=== PATIENT | female | born 1975 | race Caucasian/White ===

== ENCOUNTER 2016-11-04 01:39 | Inpatient (IN) | payer OTHER ==
[~2016-11-04] VITALS: Ht 157.5 cm; Wt 87.8 kg
--- NOTE | 2016-11-04 03:53 | ED ORDER SUMMARY ---
..... Patient: GAUDENCIO OWEN OrderSheet [facility] VisitID: [id number] [address] [place] [address] 41y, F Registration Date/Time: 11/04/2016 ORDER SHEET Weight: 86.1 kg (stated) Allergies: Dilaudid, Tetracycline, Fish-derived Products GENERAL ORDERS: Chest 1V Urgent (02:14 11/04/2016 Erin Hernandez) (Ack 2:19 AMcQuoid ER Tech1) (2:28 RCollier R.N.) Hay Farmer (Continuous) (cp) (02:14 11/04/2016 Erin Hernandez) (Ack 2:19 AMcQuoid ER Tech1) (2:29 RCollier R.N.) CBC w Diff Urgent (02:16 11/04/2016 Erin Hernandez) (Ack 2:19 AMcQuoid ER Tech1) (2:28 RCollier R.N.) CMP Urgent (02:11/04/2016 Erin Hernandez) (Ack 2:19 AMcQuoid ER Tech1) (2:28 RCollier R.N.) D-Dimer Urgent (02:16 11/04/2016 Erin Hernandez) (Ack 2:19 AMcQuoid ER Tech1) (2:28 RCollier R.N.) BNP Urgent (02:16 11/04/2016 Erin Hernandez) (Ack 2:19 AMcQuoid ER Tech1) (2:28 RCollier R.N.) Troponin-I Urgent (02:11/04/2016 Erin Hernandez) (Ack 2:19 AMcQuoid ER Tech1) (2:29 RCollier R.N.) Pulse oximeter (02:11/04/2016 Erin Hernandez) (Ack 2:19 AMcQuoid ER Tech1) (2:29 RCollier R.N.) EKG - ER Stat (02:11/04/2016 Erin Hernandez) (Ack 2:19 AMcQuoid ER Tech1) (2:28 CHategekimana) (2:28 RCollier R.N.) Blood Culture (Yes) (levaquin) Urgent (03:52 11/04/2016 Erin Hernandez) (Ack 3:53 AMcQuoid ER Tech1) (5:48 RCollier R.N.) MEDICATION ORDERS: DuoNeb Neb Tx 1 unit dose (NOW) (02:15 11/04/2016 Erin Hernandez) (Ack 2:28 RCollier R.N.) (2:28 RCollier R.N.) Albuterol Neb Tx 2.5 mg (NOW) (03:51 11/04/2016 Erin Hernandez) (Ack 3:53 RCollier R.N.) Tylenol PO 650 mg (NOW) (05:48 11/04/2016 Demetrio R.N. verbal order read back to Erin Hernandez) (5:48 RCollier R.N.) IV FLUIDS: IV Saline Lock (02:16 11/04/2016 Erin Hernandez) (Ack 2:16 RCollier R.N.) Solu-MEDROL IV 125 mg (NOW) (02:16 11/04/2016 Erin Hernandez) (Ack 2:28 MAGDAollier R.N.) (2:47 RCollier R.N.) ORDER SHEET NOTES: [Electronically signed by Jinny Hunter R.N. (06:30 11/04/2016)] [Electronically locked/signed by Jinny Hunter R.N. (06:30 11/04/2016)]
--- NOTE | 2016-11-04 03:53 | ED NURSING NOTES ---
Clinical Report - Nurses [facility] [address] [place] [address] 11/04/2016 1:43 Patient: GAUDENCIO OWEN TRIAGE Triage time 01:47. Acuity: LEVEL 3. Chief Complaint: DIFFICULTY BREATHING. Alert. --01:51 Jinny Hunter R.N. 01:47 11/04/16. BP: 97/59. HR: 96. RR: 24 (unlabored). O2 saturation: 92% on room air. Temp: 98.9 F (oral). Pain level now: 04/25. --01:51 Jinny Hunter R.N. Weight: 86.1 kg stated. Height/Length: 62 inches Per Patient. BMI: 34.8. --01:48 Jinny Hunter R.N. Medications Flonase Nasal. --01:53 Jinny Hunter R.N. Albuterol Sulfate Oral. --01:53 Jinny Hunter R.N. Pulmicort Inhalation. --01:53 Jinny Hunter R.N. Sotalol HCl Oral 80 mg, 2x a day. --01:54 Jinny Hunter R.N. ValACYclovir HCl Oral (Tablet 1 gm) 1 tablet, twice daily. --01:54 Jinny Hunter R.N. Linzess Oral (Capsule 290 mcg) 1 capsule, daily. --01:55 Jinny Hunter R.N. Embrel. --01:55 Jinny Hunter R.N. Gabapentin Oral 100 mg, daily. --01:56 Jinny Hunter R.N. ALPRAZolam Oral (Tablet 2 mg) 1 tablet, 2x a day. --01:56 Jinny Hunter R.N. Mucinex D Oral (Tablet Extended Release 12 Hour 60-600 mg) 1 tablet, twice daily. --01:57 Jinny Hunter R.N. PARoxetine HCl Oral (Tablet 20 mg) 1 tablet, daily. --: Jinny Hunter R.N. Benzonatate Oral 100 mg, every 6 hours as needed. --: Jinny Hunter R.N. Metoclopramide HCl Oral 10 mg, 4x a day. --: Jinny Hunter R.N. Ondansetron Oral 4 mg, 2x a day as needed. --: Jinny Hunter R.N. Naproxen Oral 500 mg, 2x a day. --: Jinny Hunter R.N. MetroNIDAZOLE Oral 500 mg, 3x a day. --02: Jinny Hunter R.N. Amitriptyline HCl Oral 25 mg, at bedtime as needed. --02: Jinny Hunter R.N. Levothyroxine Sodium Oral (Tablet 137 mcg) 1 tablet, daily. --02: Jinny Hunter R.N. Limbrel Oral (Capsule 500 mg) 1 capsule, twice daily. --02: Jinny Hunter R.N. Levofloxacin Oral 500 mg, daily. --02: Jinny Hunter R.N. TraMADol HCl Oral 50 mg, every 4 hours as needed. --02: Jinny Hunter R.N. Omeprazole Oral 40 mg, daily. --02:02 Jinny Hunter R.N. Allergies Dilaudid.(vomiting) --02:02 Jinny Hunter R.N. Tetracycline. --02:02 Jinny Hunter R.N. Fish-derived Products.(hives) --02:03 Jinny Hunter R.N. History Arrived by private vehicle. Historian: patient. Accompanied by family. Primary physician (Fernando ([facility])). Onset. (has been ongoing since ). 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 PAST MEDICAL HX: Immunizations: up-to-date. SOCIAL HX: Never smoker. Occasional alcohol use. No drug use. NUTRITIONAL RISK ASSESSMENT: The nutritional risk assessment revealed no deficiencies. FUNCTIONAL ASSESSMENT: Functional assessment: no impairments noted. --:51 Jinny Hunter R.N. PROBLEMS: Bronchitis. Asthma. --01:49 Jinny Hunter R.N. Fibromyalgia. --04:08 Jinny Hunter R.N. ADDITIONAL SURGERIES: . Dilatation & Curettage. Orthroscopy. --01:49 Jinny Hunter R.N. Interventions To treatment room. --01:51 Jinny Hunter R.N. PHYSICAL ASSESSMENT To room via wheelchair. Patient gowned. GENERAL / NEURO / PSYCH: Alert. Oriented X 4. Appears in no acute distress. Appears anxious. HEENT: Mucous membranes are pink. RESPIRATORY: No respiratory distress. The patient can speak in full sentences. CVS: Capillary refill less than 2 seconds. SKIN: Skin is warm and dry. --01:51 Jinny Hunter R.N. NURSING PROGRESS NOTES Head of bed elevated. Two patient identifiers checked. Call light placed in reach. Side rails up x 1. Bed placed in lowest position. Brakes of bed on. --01:52 Jinny Hunter R.N. Patient ready for evaluation- chart flagged. --01:52 Jinny Hunter R.N. 01:52 11/04/16. O2 saturation: 98% on room air. --01:52 Jinny Hunter R.N. 02:20 11/04/2016 Site #1 started via IV in the right antecubital space with an 20g angiocath, with aseptic technique and good blood return; one attempt. Blood drawn: rainbow set. Labeled in the presence of the patient and sent to the lab. Saline lock flushed with 10 mL saline. --02:27 Jinny Hunter R.N. 02:26 11/04/2016 Duoneb (Ipratropium-Albuterol) Neb TX Nebulizer 1 unit dose given. Given by the respiratory therapist. Allergies verified and confirmed 5 rights. --02:28 Jinny Hunter R.N. 02:28 11/04/16. Portable chest x-ray performed and shown to the ED physician. --02:28 Hunter, Jinny, R.N. EKG time: (0227 AM). EKG was ordered, performed by a tech and shown to the ED physician. --02:29 Mili Gonzalez 02:46 11/04/2016 SOLU-MEDROL (MethylPREDNISolone Sodium Succ) IVP 125 mg given over 1 minute(s) via site #1. Allergies verified and confirmed 5 rights. IV patency established. IV site checked: no pain, redness, or swelling. IV flushed thoroughly pre- and post-medication administration. IVP given by RN. --02:47 Jinny Hunter R.N. 04:07 11/04/16. Patient ID band checked for patient name and birthdate: patient confirmed. Blood samples drawn by lab per protocol ; labeled in presence of the patient and sent to lab: blood culture. --04:07 Jinny Hunter R.N. 05:48 11/04/2016 Tylenol (Acetaminophen) PO Tablets 650 mg given. Allergies verified and confirmed 5 rights. --05:48 Jinny Hunter R.N. 06:08 11/04/16. BP: 103/65. HR: 104. RR: 15 (regular and unlabored). O2 saturation: 94% on room air. --06:09 Jinny Hunter R.N. 05:50 late entry - pt given ice water per pt request and verbal ok by EDMD. --06:10 Jinny Hunter R.N. DISPOSITION / DISCHARGE Report was given to a nurse via a phone call. Report included patient's care, treatment, medications, reviewed medication reconcilliation, and condition (including any recent changes or anticipated changes). All questions were answered. Report was acknowledged. --06:24 Jinny Hunter R.N. Admitted to Acute Care. --06:24 Jinny Hunter R.N. Transported via wheelchair by tech with IV. --06:30 Jinny Hunter R.N. 06:30 11/04/2016 Site #[address] upon admission; patent. --06:30 Jinny Hunter R.N. Locked/Released at 11/04/2016 6:30 by Jinny Hunter R.N.
--- NOTE | 2016-11-04 03:53 | ED ORDER SUMMARY ---
..... Patient: GAUDENCIO OWEN OrderSheet [facility] VisitID: [id number] [address] [place] [address] 41y, F Registration Date/Time: 11/04/2016 ORDER SHEET Weight: 86.1 kg (stated) Allergies: Dilaudid, Tetracycline, Fish-derived Products GENERAL ORDERS: Chest 1V Urgent (02:14 11/04/2016 Erin Hernandez) (Ack 2:19 AMcQuoid ER Tech1) (2:28 RCollier R.N.) General Production Manager (Continuous) (cp) (02:14 11/04/2016 Erin Hernandez) (Ack 2:19 AMcQuoid ER Tech1) (2:29 RCollier R.N.) CBC w Diff Urgent (02:16 11/04/2016 Erin Hernandez) (Ack 2:19 AMcQuoid ER Tech1) (2:28 RCollier R.N.) CMP Urgent (02:11/04/2016 Erin Hernandez) (Ack 2:19 AMcQuoid ER Tech1) (2:28 RCollier R.N.) D-Dimer Urgent (02:16 11/04/2016 Erin Hernandez) (Ack 2:19 AMcQuoid ER Tech1) (2:28 RCollier R.N.) BNP Urgent (02:16 11/04/2016 Erin Hernandez) (Ack 2:19 AMcQuoid ER Tech1) (2:28 RCollier R.N.) Troponin-I Urgent (02:11/04/2016 Erin Hernandez) (Ack 2:19 AMcQuoid ER Tech1) (2:29 RCollier R.N.) Pulse oximeter (02:11/04/2016 Erin Hernandez) (Ack 2:19 AMcQuoid ER Tech1) (2:29 RCollier R.N.) EKG - ER Stat (02:11/04/2016 Erin Hernandez) (Ack 2:19 AMcQuoid ER Tech1) (2:28 CHategekimana) (2:28 RCollier R.N.) Blood Culture (Yes) (levaquin) Urgent (03:52 11/04/2016 Erin Hernandez) (Ack 3:53 AMcQuoid ER Tech1) (5:48 RCollier R.N.) MEDICATION ORDERS: DuoNeb Neb Tx 1 unit dose (NOW) (02:15 11/04/2016 Erin Hernandez) (Ack 2:28 RCollier R.N.) (2:28 RCollier R.N.) Albuterol Neb Tx 2.5 mg (NOW) (03:51 11/04/2016 Erin Hernandez) (Ack 3:53 RCollier R.N.) Tylenol PO 650 mg (NOW) (05:48 11/04/2016 Demetrio R.N. verbal order read back to Erin Hernandez) (5:48 RCollier R.N.) IV FLUIDS: IV Saline Lock (02:16 11/04/2016 Erin Hernandez) (Ack 2:16 RCollier R.N.) Solu-MEDROL IV 125 mg (NOW) (02:16 11/04/2016 Erin Hernandez) (Ack 2:28 MAGDAollier R.N.) (2:47 RCollier R.N.) ORDER SHEET NOTES: [Electronically signed by Jinny Hunter R.N. (06:30 11/04/2016)] [Electronically locked/signed by Jinny Hunter R.N. (06:30 11/04/2016)]
--- NOTE | 2016-11-04 06:15 | DIAGNOSTIC IMAGING REPORT ---
PROCEDURE: XR CHEST 1 VIEW INDICATION: CHEST PAIN TECHNIQUE: Portable AP view (0225 hours). COMPARISON: None. FINDINGS: There are mild bilateral interstitial and early alveolar parenchymal changes. Heart and mediastinum are normal. Thorax is normal. IMPRESSION: 1. Mild bilateral interstitial and early alveolar parenchymal changes compatible with pneumonia (e.g., viral, Mycoplasma).
[2016-11-04] MEDS ORDERED: XANAX0.5 MG PO (06:26)
[2016-11-04] MEDS ORDERED: PROAIR HFA IN (06:26)
[2016-11-04] MEDS ORDERED: AMITRIPTYLINE H25 MG PO (06:27)
[2016-11-04] MEDS ORDERED: BENZONATATE100 MG PO (06:27)
--- NOTE | 2016-11-04 06:31 | ED MED RECONCILIATION SUMMARY ---
Patient: GAUDENCIO OWEN Medication Reconciliation Report [facility] VisitID: [id number] [address] [place] [address] 41y, F Registration Date/Time: 11/04/2016 Weight: 86.1 kg Height/Length: 62 in. BMI: 34.8 ALLERGIES: Dilaudid, Fish-derived Products, Tetracycline The patient's Home Medications are listed below: THE FOLLOWING MEDICATIONS NEED TO BE RECONCILED: Albuterol Sulfate Oral ALPRAZolam Oral (2 mg) 1 tablet, 2x a day Amitriptyline HCl Oral 25 mg, at bedtime Benzonatate Oral 100 mg, every 6 hours Embrel Flonase Nasal Gabapentin Oral 100 mg, daily Levofloxacin Oral 500 mg, daily Levothyroxine Sodium Oral (137 mcg) 1 tablet, daily Limbrel Oral (500 mg) 1 capsule, twice daily Linzess Oral (290 mcg) 1 capsule, daily Metoclopramide HCl Oral 10 mg, 4x a day MetroNIDAZOLE Oral 500 mg, 3x a day Mucinex D Oral (60-600 mg) 1 tablet, twice daily Naproxen Oral 500 mg, 2x a day Omeprazole Oral 40 mg, daily Ondansetron Oral 4 mg, 2x a day PARoxetine HCl Oral (20 mg) 1 tablet, daily Pulmicort Inhalation Sotalol HCl Oral 80 mg, 2x a day TraMADol HCl Oral 50 mg, every 4 hours ValACYclovir HCl Oral (1 gm) 1 tablet, twice daily The source(s) of the original Home Medication information: Not obtained. The following Medications were given to the patient in the Emergency Department: Duoneb [Neb Tx] Neb TX 1 unit dose, administered: 11/04/2016 2:26:00 AM SOLU-MEDROL [IVP] IVP 125 mg, administered: 11/04/2016 2:46:00 AM Tylenol [PO] PO 650 mg, administered: 11/04/2016 5:48:00 AM The following Medications were prescribed to the patient: None.
--- NOTE | 2016-11-04 06:31 | ED MED RECONCILIATION SUMMARY ---
Patient: GAUDENCIO OWEN Medication Reconciliation Report [facility] VisitID: [id number] [address] [place] [address] 41y, F Registration Date/Time: 11/04/2016 Weight: 86.1 kg Height/Length: 62 in. BMI: 34.8 ALLERGIES: Dilaudid, Fish-derived Products, Tetracycline The patient's Home Medications are listed below: THE FOLLOWING MEDICATIONS NEED TO BE RECONCILED: Albuterol Sulfate Oral ALPRAZolam Oral (2 mg) 1 tablet, 2x a day Amitriptyline HCl Oral 25 mg, at bedtime Benzonatate Oral 100 mg, every 6 hours Embrel Flonase Nasal Gabapentin Oral 100 mg, daily Levofloxacin Oral 500 mg, daily Levothyroxine Sodium Oral (137 mcg) 1 tablet, daily Limbrel Oral (500 mg) 1 capsule, twice daily Linzess Oral (290 mcg) 1 capsule, daily Metoclopramide HCl Oral 10 mg, 4x a day MetroNIDAZOLE Oral 500 mg, 3x a day Mucinex D Oral (60-600 mg) 1 tablet, twice daily Naproxen Oral 500 mg, 2x a day Omeprazole Oral 40 mg, daily Ondansetron Oral 4 mg, 2x a day PARoxetine HCl Oral (20 mg) 1 tablet, daily Pulmicort Inhalation Sotalol HCl Oral 80 mg, 2x a day TraMADol HCl Oral 50 mg, every 4 hours ValACYclovir HCl Oral (1 gm) 1 tablet, twice daily The source(s) of the original Home Medication information: Not obtained. The following Medications were given to the patient in the Emergency Department: Duoneb [Neb Tx] Neb TX 1 unit dose, administered: 11/04/2016 2:26:00 AM SOLU-MEDROL [IVP] IVP 125 mg, administered: 11/04/2016 2:46:00 AM Tylenol [PO] PO 650 mg, administered: 11/04/2016 5:48:00 AM The following Medications were prescribed to the patient: None.
--- NOTE | 2016-11-04 06:31 | ED MAR SUMMARY ---
..... Medication Administration Record [facility] [address] [place] [address] Patient: GAUDENCIO OWEN Visit ID: [id number] 41y, F Weight: 86.1 kg Height/Length: 62 in BMI: 34.8 ALLERGIES: Fish-derived Products, Tetracycline, Dilaudid Given 02:26 11/04/2016 Jinny Hunter R.N. Medication Administered: DUONEB [NEB TX] (IPRATROPIUM-ALBUTEROL), Dose: 1 unit dose Nebulizer Neb TX. Medication Ordered: DuoNeb Neb Tx 1 unit dose (NOW). Given 02:46 11/04/2016 Jinny Hunter R.N. Medication Administered: SOLU-MEDROL [IVP] (METHYLPREDNISOLONE SODIUM SUCC), Dose: 125 mg IVP over 1 minute(s), Site: #1 right AC. Medication Ordered: Solu-MEDROL IV 125 mg (NOW). Given 05:48 11/04/2016 Jinny Hunter R.N. Medication Administered: TYLENOL [PO] (ACETAMINOPHEN), Dose: 650 mg Tablets PO. Medication Ordered: Tylenol PO 650 mg (NOW).
--- NOTE | 2016-11-04 06:31 | ED MAR SUMMARY ---
..... Medication Administration Record [facility] [address] [place] [address] Patient: GAUDENCIO OWEN Visit ID: [id number] 41y, F Weight: 86.1 kg Height/Length: 62 in BMI: 34.8 ALLERGIES: Fish-derived Products, Tetracycline, Dilaudid Given 02:26 11/04/2016 Jinny Hunter R.N. Medication Administered: DUONEB [NEB TX] (IPRATROPIUM-ALBUTEROL), Dose: 1 unit dose Nebulizer Neb TX. Medication Ordered: DuoNeb Neb Tx 1 unit dose (NOW). Given 02:46 11/04/2016 Jinny Hunter R.N. Medication Administered: SOLU-MEDROL [IVP] (METHYLPREDNISOLONE SODIUM SUCC), Dose: 125 mg IVP over 1 minute(s), Site: #1 right AC. Medication Ordered: Solu-MEDROL IV 125 mg (NOW). Given 05:48 11/04/2016 Jinny Hunter R.N. Medication Administered: TYLENOL [PO] (ACETAMINOPHEN), Dose: 650 mg Tablets PO. Medication Ordered: Tylenol PO 650 mg (NOW).
[2016-11-04 06:33] VITALS: BP 105/71
[2016-11-04] MEDS ORDERED: LEVAQUIN500 MG PO (06:34)
[2016-11-04] MEDS ORDERED: GABAPENTIN100 MG PO (06:34)
[2016-11-04] MEDS ORDERED: LEVO-T25 MCG PO (06:35)
--- NOTE | 2016-11-04 06:35 | History & Physical Report ---
Admission Admit Date 11/04/16 History Chief Complaint Cough, Shortness of Breath History of Present Illness Patient is a 41 year old female with a past medical history of Rheumatoid Arthritis, Fibromyalgia, Anxiety, Hypothyroidism, GERD, Depression, and Sinus Tachycardia. She presents to the ER at [facility] this morning complaining of cough and shortness of breath. Pt states her symptoms have been present for nearly 6 weeks now and seem to wax and wane. She states her cough is productive of greenish colored sputum. She also reports intermittent tactile fever and chills. She denies nausea, vomiting, and diarrhea. Pt states she has had cold- like symptoms several weeks ago. Pt states over the last several days her symptoms have worsened and she is now having a sharp sensation in the right side of her chest with deep inspiration. Pt was seen by an outpatient provider recently and was started on PO Levaquin. Pt states she took this medication as prescribed but it did not help her. Pt denies any palpitations, dizziness, or weakness. She further complains of headache and myalgias for the last week. No other complaints or concerns at this time. Patient History 1. Rheumatoid arthritis 2. Anxiety 3. Hypothyroidism 4. GERD (gastroesophageal reflux disease) 5. Tachycardia 6. Fibromyalgia Social History Pt has no hx of tobacco use, denies excessive alcohol consumption and denies use of illicit drugs. Family History Family history was reviewed; no changes noted. Medications and Allergies Medications Current Medications Sig/Franklyn Start time Last Medication Dose Route Stop Time Status Admin Pantoprazole Sodium 40 MG DAILY@0600 11/05 0600 UNV IV Azithromycin 500 MG Q24HR 11/04 0900 UNV Sodium Chloride 250 ML IV 11/06 1000 Ceftriaxone Sodium/ 50 ML Q24HR 11/04 0900 UNV Dextrose IV Albuterol Sulfate 2.5 MG Q6H PRN 11/04 0645 UNV IN Acetaminophen 650 MG Q6H PRN 11/04 0630 UNV PO Al Hydrox/Mg Hydrox/ 15 ML Q1H PRN 11/04 0630 UNV Simethicone PO Atropine Sulfate 0.5 MG Q3MIN PRN 11/04 0630 UNV IV Docusate Sodium 250 MG BID PRN 11/04 0630 UNV PO Lidocaine HCl See Dose ONCE PRN 11/04 0630 UNi Insts (1) IV Magnesium Hydroxide 10 ML DAILY PRN 11/04 0530 UNV PO Morphine Sulfate 1 MG Q4H PRN 11/04 629 UNV IV Morphine Sulfate 2 MG Q3M PRN 11/04 629 UNV IV Naloxone HCl 0.4 MG PRN PRN 11/04 629 UNV IV Nitroglycerin 0.4 MG Q5M PRN 11/04 629 UNV SL Ondansetron HCl 4 MG Q6H PRN 11/04 629 UNV IV Sodium Chloride 1,000 ML ASDIRECTED 11/04 629 UNV IV Zolpidem Tartrate 5 MG QHS PRN 11/04 629 UNV PO Albuterol/Ipratropium 3 ML Q4H PRN 11/04 0400 AC IN Ondansetron HCl 4 MG Q8H PRN 11/04 0400 AC IV Dose Instructions: (1)Lidocaine HCl: 1.5 MG/KG Pts home medication list has not yet been reconciled. Allergies Coded Allergies: Fish-derived Products (11/04/16) Hydromorphone (From DILAUDID) (11/04/16) TAPE - PAPER (PAPER TAPE) (11/04/16) Tetracycline (11/04/16) Review of Systems Other All systems reviewed and are negative except for what has already been mentioned in the HPI. Physical Exam Vital Signs / I&Os Vital Signs Date Time Temp Pulse Resp B/P Pulse O2 O2 Flow FiO2 Ox Delivery Rate 11/04 227 97.8 96 20 113/74 98% NC 2.0 GENERAL: NAD; Pt laying comfortably in bed HEENT: AT/NC; PERRLA, EOMI; MM Moist CARDIAC: RRR, No M/R/G appreciated PULM: Corase breath sounds throughout bilateral lungs, no wheezing present, normal work of breathing ABD: Soft, NT, ND, Positive BS in all quadrants; No hepatosplenomegaly appreciated EXT: No C/C/E in bilateral upper and lower extremity; No calve tenderness bilaterally SKIN: Warm, dry, pink, and intact NEURO: Alert and oriented x3; Following all commands PSYCH: Normal mood and affect LAB Results Laboratory Tests 11/04 0222 0222 Chemistry Plasma Sodium (136 - 145 mmol/L) 139 Plasma Potassium (3.5 - 5.1 mmol/L) 4.0 Plasma Chloride (98 - 107 mmol/L) 106 CO2 (Enzymatic) (21 - 32 mmol/L) 25 BUN (7 - 18 mg/dL) 13 Creatinine (0.6 - 1.3 mg/dL) 1.1 Est GFR ( Amer) (mL/min) >60 Est GFR (Non-Af Amer) (mL/min) 57.89 Glucose (70 - 110 mg/dL) 118 Plasma Calcium (8.5 - 10.1 mg/dL) 8.2 Plasma Magnesium Pending Total Bilirubin (0.0 - 1.0 mg/dL) 0.8 AST (15 - 37 U/L) 63 ALT (12 - 78 U/L) 97 Alkaline Phosphatase (46 - 116 U/L) 117 Troponin (0.00 - 1.5 ng/mL) Pending <0.05 B-Natriuretic Peptide (5 - 100 pg/ml) 15.0 Total Protein (6.4 - 8.2 g/dL) 6.5 Albumin (3.3 - 5.0 g/dL) 2.9 Coagulation D-Dimer, Quantitative (0.27 - 0.52 ug/mLFEU) 0.33 Hematology WBC (4.5 - 11.5 K/uL) 8.1 RBC (4.00 - 5.20 M/uL) 4.30 Hgb (12.0 - 16.0 gm/dL) 12.5 Hct (36.0 - 46.0 %) 37.0 MCV (80 - 100 fL) 86 MCH (26 - 34 pg) 29 RDW (11.6 - 14.8 %) 14.4 Neut % (Auto) (50 - 75 %) 76.4 Lymph % (Auto) (25 - 40 %) 10.0 [place] % (Auto) (3 - 14 %) 10.1 Eos % (Auto) (0 - 4 %) 2.9 Baso % (Auto) (0 - 2 %) 0.6 Plt Count, EDTA (150 - 400 K/uL) 212 PUBS MCHC (31 - 37 g/dL) 34 Microbiology Date/Time Procedure - Status Source Growth 11/04 632 Influenza Screen - ORD NASALPHAR 11/04 409 Blood Culture - RECD BLOOD 11/04 409 Blood Culture - RECD BLOOD Imaging XR CHEST 1 VIEW TECHNIQUE: Portable AP view (0225 hours). COMPARISON: None. FINDINGS: There are mild bilateral interstitial and early alveolar parenchymal changes. Heart and mediastinum are normal. Thorax is normal. IMPRESSION: 1. Mild bilateral interstitial and early alveolar parenchymal changes compatible with pneumonia (e.g., viral, Mycoplasma). Assessment and Plan Problem List 1. Pneumonia Plan - Present on admission - Will admit to Acute Care as an inpatient as pts expected length of stay is greater than 2 midnights - Blood cultures x2 taken in ER - Start IV Rocephin 2 grams daily - Start IV Azithromycin 500 mg daily x3 days - Albuterol breathing treatments q 6 hours PRN - Supplemental O2 to keep SpO2 greater than 92% - Will order a Respiratory Viral PCR panel now - Will check a Rapid Influenza Screen - Will check urine for Strep Pneumoniae Ag - Will check urine for Legionella Ag - Check CRP and Procalcitonin now - Repeat CBC with diff in AM 2. Rheumatoid arthritis Plan - Pts home medications have not yet been reconciled and nursing is working on this currently - Day team to restart pts home medications 3. Anxiety Plan - Pt is normally on Alprazolam at home but dose is not known at present - Pts home medications have not yet been reconciled and nursing is working on this currently - Day team to restart pts home medications 4. Hypothyroidism Plan - Pt currently taking Synthroid at home - Pts home medications have not yet been reconciled and nursing is working on this currently - Day team to restart pts home medications 5. GERD (gastroesophageal reflux disease) Plan - Will start pt on Protonix while in hospital 6. Tachycardia Plan - Continue home Sotolol once dosage is confirmed - Day team to restart this medication once it is reconciled 7. Fibromyalgia Plan - Pt is normally on Tramadol at home - Will start pt on Morphin 1 mg IV q 4 hours PRN severe pain - Day team to restart home Tramadol once dosage is confirmed
[2016-11-04] MEDS ORDERED: LIMBREL500 MG PO (07:37)
[2016-11-04] MEDS ORDERED: REGLAN10 MG PO (07:39)
[2016-11-04] MEDS ORDERED: LINZESS290 MCG PO (07:39)
[2016-11-04] MEDS ORDERED: FLAGYL500 MG PO (07:40)
[2016-11-04] MEDS ORDERED: NAPROSYN250 MG PO (07:40)
[2016-11-04] MEDS ORDERED: MUCINEX600 MG PO (07:40)
[2016-11-04] MEDS ORDERED: ONDANSETRON ODT4 MG PO (07:41)
[2016-11-04] MEDS ORDERED: OMEPRAZOLE40 MG (07:41)
[2016-11-04] MEDS ORDERED: PAROXETINE HCL10 MG PO (07:41)
[2016-11-04] MEDS ORDERED: BETAPACE AF80 MG PO (07:42)
[2016-11-04] MEDS ORDERED: PULMICORT0.25 MG/2 IN (07:42)
[2016-11-04] MEDS ORDERED: VALACYCLOVIR HCL1 GM (07:43)
[2016-11-04] MEDS ORDERED: TRAMADOL HCL50 MG PO (07:43)
[2016-11-04 10:34] VITALS: BP 101/65
[2016-11-04 14:34] VITALS: BP 110/64
[2016-11-04 18:31] VITALS: BP 115/74
[2016-11-04 23:14] VITALS: BP 108/68
[2016-11-04 23:32] VITALS: BP 138/80
[2016-11-05 02:52] VITALS: BP 106/63
[2016-11-05 06:43] VITALS: BP 102/60
--- NOTE | 2016-11-05 08:04 | Progress Note ---
Subjective General Breathing improved today. No nausea, vomitting, diarrhea, constipation. Chronic abd pain unchanged. Physical Exam Vital Signs / I&Os Vital Signs Date Time Temp Pulse Resp B/P Pulse O2 O2 Flow FiO2 Ox Delivery Rate 11/05 0643 36.4 103 20 102/60 94 Nasal 2.0 Cannula 11/05 0600 2.0 11/05 0252 36.4 79 18 106/63 92 Nasal 2.0 Cannula 11/04 2330 2.0 11/04 2314 36.4 74 18 108/68 96 Nasal 2.0 Cannula 11/04 2130 Nasal 2.0 Cannula 11/04 2021 2.0 11/04 1831 36.4 82 16 115/74 100 Nasal 2.0 Cannula 11/04 1726 2.0 11/04 1434 36.5 85 20 110/64 93 Nasal 1.0 Cannula 11/04 1034 36.6 20 101/65 97 Room Air 1.0 11/04 0815 2.0 I&O 11/05 0000 11/04 1600 11/04 0800 Intake Total 1823 1000 0 Output Total 1000 1100 0 Balance 823 -100 0 General Appearance Alert, Oriented X3, Cooperative, No acute distress Lungs Mild crackles in bilateral lower james. Cardiovascular Regular rate and rhythm, Normal S1 and S2, No murmurs, gallops, rubs Abdomen Normal bowel sounds, Soft, Mild tendernesss on R withOUT peritoneal signs. Extremities No edema Assessment and Plan Problem List 1. Pneumonia Plan Improving in antibiotics. Will try to wean O2 today. 2. Rheumatoid arthritis Plan Nurse working on obtaining accurate dose of meds and will restart meds. 3. Anxiety Plan Nurse working on obtaining accurate dose of meds and will restart meds. 4. Hypothyroidism Plan Nurse working on obtaining accurate dose of meds and will restart meds. 5. GERD (gastroesophageal reflux disease) Plan On PPI 6. Tachycardia Plan Nurse working on obtaining accurate dose of meds and will restart meds. 7. Fibromyalgia Plan Nurse working on obtaining accurate dose of meds and will restart meds.
[2016-11-05 11:23] VITALS: BP 110/6; BP 110/60
--- NOTE | 2016-11-05 12:53 | Provider's Discharge Care Plan ---
Problem, Goal, Plan Problem List 1. Pneumonia Goals: Improved health/wellness Instructions: Follow up as directed, Take meds as directed
--- NOTE | 2016-11-05 12:53 | Provider's Discharge Care Plan ---
Problem, Goal, Plan Problem List 1. Pneumonia Goals: Improved health/wellness Instructions: Follow up as directed, Take meds as directed
[2016-11-05] MEDS ORDERED: CEPHALEXIN500 MG PO (12:59)
[2016-11-05] MEDS ORDERED: IPRATROPIUM BROMIDE/ IN (12:59)
[2016-11-05] MEDS ORDERED: ZITHROMAX250 MG PO (12:59)
[2016-11-05] MEDS ORDERED: PREDNISONE20 MG PO (12:59)
[2016-11-05 15:13] VITALS: BP 126/62
--- NOTE | 2016-11-11 02:38 | ED DISCHARGE INSTRUCTIONS ---
Patient: GAUDENCIO OWEN General Instructions [facility] VisitID: [id number] [address] [place] [address] 41y, F Registration Date/Time: 11/04/2016 acute bilateral pneumonia atypical chest pain, acute acute hypoxia. (Electronically signed by Oliver Gray Dr. 11/11/2016 2:37)
--- NOTE | 2016-11-11 02:38 | ED CLINICAL REPORT ---
Clinical Report - Physicians/Mid Levels [facility] [address] [place] [address] 11/04/2016 1:43 Patient: GAUDENCIO OWEN Arrived- By private vehicle. Historian- patient. HISTORY OF PRESENT ILLNESS Chief Complaint: CHEST PAIN. At its maximum, severity described as moderate. When seen in the E.D., severity described as moderate. Modifying factors- worsened by deep breaths. Relieved by rest. This started past few days and is still present (staying the same). It was gradual in onset and has been intermittent but is not gone now. Onset during rest. It is described as "pain". No radiation. No nausea, vomiting or diaphoresis. (reports cough, congestion, and fever). She has had difficulty breathing. No additional chest pain. Similar symptoms previously: None. Recent medical care: Not recently seen/assessed. REVIEW OF SYSTEMS No pedal edema, calf pain, abdominal pain or skin rash. All systems otherwise negative, except as recorded above. PAST HISTORY See nurses notes. Medications: Omeprazole Oral 40 mg, daily. TraMADol HCl Oral 50 mg, every 4 hours as needed. Levofloxacin Oral 500 mg, daily. Limbrel Oral (Capsule 500 mg) 1 capsule, twice daily. Levothyroxine Sodium Oral (Tablet 137 mcg) 1 tablet, daily. Amitriptyline HCl Oral 25 mg, at bedtime as needed. MetroNIDAZOLE Oral 500 mg, 3x a day. Naproxen Oral 500 mg, 2x a day. Ondansetron Oral 4 mg, 2x a day as needed. Metoclopramide HCl Oral 10 mg, 4x a day. Benzonatate Oral 100 mg, every 6 hours as needed. PARoxetine HCl Oral (Tablet 20 mg) 1 tablet, daily. Mucinex D Oral (Tablet Extended Release 12 Hour 60-600 mg) 1 tablet, twice daily. ALPRAZolam Oral (Tablet 2 mg) 1 tablet, 2x a day. Gabapentin Oral 100 mg, daily. Embrel. Linzess Oral (Capsule 290 mcg) 1 capsule, daily. ValACYclovir HCl Oral (Tablet 1 gm) 1 tablet, twice daily. Sotalol HCl Oral 80 mg, 2x a day. Pulmicort Inhalation. Albuterol Sulfate Oral. Flonase Nasal. Allergies: Dilaudid.(vomiting) Fish-derived Products.(hives) Tetracycline. SOCIAL HISTORY Never smoker. No alcohol use or drug use. No recent travel. Is a local resident. FAMILY HISTORY Negative. PHYSICAL EXAM Appearance: Alert. Oriented X3. Patient in mild distress. Eyes: Pupils equal, round and reactive to light. Eyes normal inspection. ENT: Ears normal. Nose normal. Pharynx normal. Neck: Normal inspection. Neck supple. CVS: Normal heart rate and rhythm. Heart sounds normal. Pulses normal. Respiratory: Mild respiratory distress with accessory muscle use. Prolonged expirations. Decreased air movement. Expiratory moderate bilateral wheezes diffusely. Mild bilateral rhonchi present in the bases. Chest nontender. Abdomen: Soft and nontender. Bowel sounds normal. No organomegaly. No mass. Back: Normal external inspection. Skin: Skin warm and dry. Normal skin color. No rash. Normal skin turgor. Extremities: Extremities exhibit normal ROM. No lower extremity edema. No lower extremity edema. LABS, X-RAYS, AND EKG EKG: No acute process. No acute ischemia. Normal EKG. Normal sinus rhythm. Rate: 98. Normal P waves. Normal NATAN. Normal QRS complex. Normal axis. Normal ST and T waves, QT and QTc. The study has been interpreted contemporaneously. The study has been independently viewed by me. The EKG appears to be a good tracing. Chest X-ray: Mediastinum normal. (bilateral patchy infitrates. pneumonia.). Views: PA. Technique: good. The X-rays were independently viewed by me and interpreted contemporaneously by me. Laboratory Tests: CBC w Diff: (JADA: 11/05/2016 05:40) ( MsgRcvd 11/05/2016 06:51) Final results Test Result Flag Units (Reference) WHITE BLOOD COUNT 12.5 H K/uL (4.5-11.5) RED BLOOD COUNT 4.33 M/uL (4.00-5.20) HEMOGLOBIN 12.5 gm/dL (12.0-16.0) HEMATOCRIT 37.8 % (36.0-46.0) MEAN CELL VOLUME 87 fL (80-100) MEAN CORPUSCULAR HGB 29 pg (26-34) MEAN CORPUSCULAR HGB CONC 33 g/dL (31-37) RED CELL DISTRIBUTION WIDTH 14.2 % (11.6-14.8) PLATELET COUNT 279 K/uL (150-400) NEUTROPHIL % 88.3 H % (50-75) LYMPH % 6.9 L % (25-40) MONO % 4.8 % (3-14) EOSINOPHIL % 0 % (0-4) BASOPHIL % 0 % (0-2) Liver Function Panel: (JADA: 11/05/2016 05:40) ( MsgRcvd 11/05/2016 11:16) Final results Test Result Flag Units (Reference) TOTAL PROTEIN 6.0 L g/dL (6.4-8.2) ALBUMIN 2.9 L g/dL (3.3-5.0) BILIRUBIN, TOTAL 0.2 mg/dL (0.0-1.0) BILIRUBIN, DIRECT 0.1 mg/dL (0-0.3) ALKALINE PHOSPHATASE 108 U/L (46-116) AST (SGOT) 24 U/L (15-37) ALT (SGPT) 75 U/L (12-78) THYROID STIMULATING HORMONE 0.114 L uIU/mL (0.34-3.74) BMP: (JADA: 11/05/2016 05:40) ( MsgRcvd 11/05/2016 06:42) Final results Test Result Flag Units (Reference) GLUCOSE 137 H mg/dL (70-110) BUN 10 mg/dL (7-18) CREATININE 0.8 mg/dL (0.6-1.3) Estimated GFR >60 mL/min Estimated GFR- >60 mL/min Note: Persistent reduction over 3 months in eGFR<60 mL/min/1.73 m2 defines CKD. Patients with eGFR values>=60 mL/min/1.73 m2 may also have CKD if evidence ofpersistent proteinuria. Additional information may be foundat www.kidney.org. SODIUM 141 mmol/L (136-145) POTASSIUM 3.9 mmol/L (3.5-5.1) CHLORIDE 109 H mmol/L (98-107) CARBON DIOXIDE 22 mmol/L (21-32) CALCIUM 8.3 L mg/dL (8.5-10.1) [id number]: (JADA: 11/04/2016 08:05) ( [facility] 11/05/[place] 15:09) Final results Test Result Flag Units (Reference) URINE LEGIONELLA ANTIGEN Negative (Negative) Presumptive negative for L. pneumophila serogroup 1 antigenin urine, suggesting no recent or current infection.Legionnaires' disease cannot be ruled out since otherserogroups and species may also cause disease.Performed at: [facility] [id number] Director: Jacob Choudhury MD, Phone: [phone] CBC w Diff: (JADA: 11/04/2016 02:22) ( [facility] 11/04/2016 02:36) Final results Test Result Flag Units (Reference) WHITE BLOOD COUNT 8.1 K/uL (4.5-11.5) RED BLOOD COUNT 4.30 M/uL (4.00-5.20) HEMOGLOBIN 12.5 gm/dL (12.0-16.0) HEMATOCRIT 37.0 % (36.0-46.0) MEAN CELL VOLUME 86 fL (80-100) MEAN CORPUSCULAR HGB 29 pg (26-34) MEAN CORPUSCULAR HGB CONC 34 g/dL (31-37) RED CELL DISTRIBUTION WIDTH 14.4 % (11.6-14.8) PLATELET COUNT 212 K/uL (150-400) NEUTROPHIL % 76.4 H % (50-75) LYMPH % 10.0 L % (25-40) MONO % 10.1 % (3-14) EOSINOPHIL % 2.9 % (0-4) BASOPHIL % 0.6 % (0-2) [id number]: (JADA: 11/04/2016 02:22) ( [facility] 11/04/2016 02:46) Final results Test Result Flag Units (Reference) D-DIMER QUANTITATIVE 0.33 ug/mLFEU (0.27-0.52) The primary value of this quantitative assay relates toits negative predictive value (i.e. exclusion) of pulmonaryembolism/deep vein thrombosis/DIC.Elevated levels of d-dimer may also occur with:, age, cancer, inflammation, liver disease,post-op, infection, hematoma, coronary disease, peripheralarteriopathy, bleeding disorders and thrombolytic treatment.Results should be correlated with other clinical andradiological data.Testing Methodology: Latex Immunoassay [id number]: (JADA: 11/04/2016 06:40) ( MsgRcvd 11/04/2016 08:11) Final results Test Result Flag Units (Reference) PROCALCITONIN <0.5 ng/mL (0-0.5) PCT Concentration: Interpretation : Risk/option for action PCT <=0.5 ng/mL : Systemic : Low risk forinfection(sepsis): progression to severeis not likely. : systemic infection.Local bacterial : CAUTION-PCT levelsinfection is : below 0.5 ng/mL do notpossible. : exclude an infection,because localizedinfections (withoutsystemic signs) may beassociated with suchlow levels. If PCT ismeasured very earlyafter a bacterialchallenge (usually <6hours), these valuesmay still be low. Inthis case PCT shouldbe re-assessed 6-24hours later. PCT >0.5 and : Systemic infection: Moderate risk for<= 2 ng/mL : (sepsis) is : progression to severepossible, but : systemic infection.other conditions : The patient should beare known to : closely monitoredelevate PCT. : both clinically andby re-assessing PCTwithin 6-24 hours. PCT > 2 ng/mL : Systemic infection: High risk for(sepsis) is likely: progression to severeunless other : systemic infection.causes are known. : PCT >= 10 ng/mL : Important systemic: High likelihood ofinflammatory : severe sepsis orresponse, almost : septic shock.exclusively due to:severe bacterial :sepsis or septic :shock. : Troponin-I: (JADA: 11/04/2016 22:15) ( [facility] 11/04/2016 22:48) Final results Test Result Flag Units (Reference) TROPONIN I <0.05 L ng/mL (0.00-1.5) TROPONIN REFERENCE RANGE:<0.1 NEGATIVE0.1-1.5 INDETERMINANT>1.5 POSITIVE Troponin-I: (JADA: 11/04/2016 14:25) ( [facility] 11/04/2016 14:51) Final results Test Result Flag Units (Reference) TROPONIN I <0.05 L ng/mL (0.00-1.5) TROPONIN REFERENCE RANGE:<0.1 NEGATIVE0.1-1.5 INDETERMINANT>1.5 POSITIVE Magnesium: (JADA: 11/04/2016 06:40) ( [facility] 11/04/2016 07:20) Final results Test Result Flag Units (Reference) MAGNESIUM 2.0 mg/dL (1.8-2.4) TROPONIN I <0.05 L ng/mL (0.00-1.5) TROPONIN REFERENCE RANGE:<0.1 NEGATIVE0.1-1.5 INDETERMINANT>1.5 POSITIVE C-REACTIVE PROTEIN 23.2 H mg/dL (0.0-0.9) BNP: (JADA: 11/04/2016 02:22) ( MsgRcvd 11/04/2016 02:57) Final results Test Result Flag Units (Reference) B-TYPE NATRIURETIC PEPTIDE 15.0 pg/ml (5-100) CMP: (JADA: 11/04/2016 02:22) ( MsgRcvd 11/04/2016 02:56) Final results Test Result Flag Units (Reference) GLUCOSE 118 H mg/dL (70-110) BUN 13 mg/dL (7-18) CREATININE 1.1 mg/dL (0.6-1.3) Estimated GFR 57.89 mL/min Estimated GFR- >60 mL/min Note: Persistent reduction over 3 months in eGFR<60 mL/min/1.73 m2 defines CKD. Patients with eGFR values>=60 mL/min/1.73 m2 may also have CKD if evidence ofpersistent proteinuria. Additional information may be foundat www.kidney.org. SODIUM 139 mmol/L (136-145) POTASSIUM 4.0 mmol/L (3.5-5.1) CHLORIDE 106 mmol/L (98-107) CARBON DIOXIDE 25 mmol/L (21-32) CALCIUM 8.2 L mg/dL (8.5-10.1) TOTAL PROTEIN 6.5 g/dL (6.4-8.2) ALBUMIN 2.9 L g/dL (3.3-5.0) BILIRUBIN, TOTAL 0.8 mg/dL (0.0-1.0) ALKALINE PHOSPHATASE 117 H U/L (46-116) AST (SGOT) 63 H U/L (15-37) ALT (SGPT) 97 H U/L (12-78) TROPONIN I <0.05 ng/mL (0.00-1.5) TROPONIN REFERENCE RANGE:<0.1 NEGATIVE0.1-1.5 INDETERMINANT>1.5 POSITIVE FilMarray Respiratory Panel: (JADA: 11/04/2016 00:00) ( [facility] 11/04/2016 09:29) IP Test Result Flag Units (Reference) ASSAY RESULTS DETECTED: NONE FilmArray Respiratory Panel (RP) is a multiplexed nucleic acid test intended for use with FilmArray systems for the simultaneous qualitative detection and identification of multiple respiratory viral and bacterial nucleic acids in nasopharyngeal swabs (DIRECTOR OF FIELD SERVICE) obtained from individuals suspected of respiratory tract infections. The following organism types and subtypes are identified using the FilmArray RP: Adenovirus, Coronavirus 229E, Coronavirus HKU1, Coronavirus NL63, Coronavirus OC43, Human Metapneumovirus, Influenza A, Influenza A subtype H1, Influenza A subtype H3, Influenza A subtype H1-2009, Influenza B, Parainfluenza Virus 1, Parainfluenza Virus 2, Parainfluenza Virus 3, Parainfluenza Virus 4, Human Rhinovirus/Enterovirus, Respiratory Syncytial Virus, Bordetella pertussis, Chlamydophila pneumoniae, and Mycoplasma pneumoniae. Blood Culture: (JADA: 11/04/2016 04:10) ( [facility] 11/09/2016 04:48) Final results Is patient on antibiotics? Y If so, list antibiotic: LEVAQUIN Test Result Flag Units (Reference) CULTURE, BLOOD NO GROWTH Blood Culture: (JADA: 11/04/2016 04:10) ( [facility] 11/09/2016 04:48) Final results Is patient on antibiotics? Y If so, list antibiotic: LEVAQUIN Test Result Flag Units (Reference) CULTURE, BLOOD NO GROWTH . Pulse Oximetry: Interpretation: hypoxemia. PROGRESS AND PROCEDURES Course of Care: The patient is a pleasant 41-year-old female presenting for evaluation of shortness of breath and chest pain. Patient's chest pain symptoms are pleuritic in nature. Patient is also been having fever and cough. At this time most likely diagnosis would be pneumonia. Lung examination is concerning for pneumonia. The patient is resting in bed and in no acute distress however is hypoxic on room air. Workup ordered for evaluation of pneumonia including laboratory studies as well as chest x-ray. Because of the patient's chest pain, troponin has been ordered. Although do not think patient has acute coronary artery syndrome. We'll also be evaluating for heart failure although this is less likely. Breathing treatments of also been ordered for wheezing and shortness of breath. Patient is agreeable to the treatment and plan. Chest x-ray was remarkable for bilateral interstitial infiltrates. Likely pneumonia at this time. Patient is already on antibiotics. Patient is on Levaquin. Patient had received her dose today. Patient has been only on antibiotic for a few days. Because the patient's appropriate antibiotic therapy, do not feel patient needs additional antibiotics at this time. Blood cultures have been ordered. Patient's with repeat breathing treatment and improved symptoms. Patient does state however that she would like to try another breathing treatment for further improvement of her symptoms. After the second breathing treatment was given, patient still had hypoxia whenplaced on room air. Patient drops down to 88%. Patient is not a stable Outpatient candidate. I discussion with patient in regards to admission the hospital and further emergency department evaluation/workup. Patient is agreeable to admitted to the hospital. I had discussion with the hospitalist in regards to the patient's presentation here in the emergency department. The patient is to be admitted for further Management. No further recommendations as far as for antibiotic therapy. Critical care performed (40 minutes). Time is exclusive of separately billable procedures. Time includes: direct patient care, patient reassessment, coordination of patient care, interpretation of data (laboratory data and pulse oximetry), review of patient's medical records, medical consultation and documentation of patient care. Disposition: Observation in Acute Care. CLINICAL IMPRESSION acute bilateral pneumonia atypical chest pain, acute acute hypoxia. (Electronically signed by Oliver Gray Dr. 11/11/2016 2:37)
--- NOTE | 2016-11-11 02:38 | ED DISCHARGE INSTRUCTIONS ---
Patient: GAUDENCIO OWEN General Instructions [facility] VisitID: [id number] [address] [place] [address] 41y, F Registration Date/Time: 11/04/2016 acute bilateral pneumonia atypical chest pain, acute acute hypoxia. (Electronically signed by Oliver Gray Dr. 11/11/2016 2:37)
== END 2016-11-05 16:00 | disposition home or self-care (01) | DRG 195 ==
LOC: ED SRH 01:39 → EDBD 01:44 → TRANS SRH 04:04 → ACUTE2 SRH 04:04 → TRANS SRH 04:04 → ACUTE2 SRH 06:30
PROVIDERS: ADMIT Family Medicine
DX: J18.9 Pneumonia, unspecified organism (principal); R09.02 Hypoxemia; M79.7 Fibromyalgia; K21.9 Gastro-esophageal reflux disease without esophagitis; F41.9 Anxiety disorder, unspecified; M06.9 Rheumatoid arthritis, unspecified; E03.9 Hypothyroidism, unspecified
CPT/HCPCS: 90047; 90065; 90074; 90100; 90616; 90934; 91320; 91556; 91585; 92710; 92720; 93004; 93140; 94139; 94140; 94141; 95059